=== PATIENT | male | born 1940 | race Caucasian/White ===

== ENCOUNTER 2017-04-21 12:58 | Inpatient (IN) | payer OTHER ==
[~2017-04-21] VITALS: Ht 177.8 cm; Wt 86.3 kg
[~2017-04-21 12:58] MED LIST: ALDACTONE25 MG PO; ASPIR 8181 MG PO; ASPIRIN PO; ATRINH INH; CARISOPRODOL350 PO; CENTRUM SILVER1 EAC2 PO; COR6 PO; COREG12.5 MG PO; COU5 PO; COUMADIN5 MG PO; DIG125 PO; GLU500 PO; HALCION PO; L20 PO; LASIX40 MG PO; LISINOPRIL10 MG PO; LISINOPRIL2.5 MG PO; LOT10 PO; LOVASTATIN20 M PO; LOVASTATIN20 MG PO; METFORMIN HCL1000 MG PO; MONTELUKAST SOD10 M1 PO; PENTOXIFYLLINE400 MG PO; POTASSIUM CHLORIDE; PRILOSEC OTC20 M1 PO; PRILOSEC20 PO; PROAIR HFA8.5 GM; SPIRIVA18 MC1 IH; SYMBICORT1 AE2 IH; TRE400 PO; [UNRECOGNIZED DRUG - OTHER] PO
--- NOTE | 2017-04-21 13:06 | NUR ---
PT BIB BY AMBULANCE TODAY. PT WAS TAKING HIS DAILY WALK AROUND THE MALL TODAY AND BEGAN FEELING LIGHT-HEADED AND DIZZY. DENIES SYNCOPAL EPISODE, DENIES CP. PT AWAKE AND ALERT, TALKATIVE UPON ARRIVAL, NO SIGNS OF DISTRESS NOTED.
--- NOTE | 2017-04-21 13:23 | NUR ---
DR. REYNA AT BEDSIDE FOR MSE.
[2017-04-21 13:52] LABS: BASOPHIL % 0.4 % (0-2); PLATELET COUNT 173 x10^3mcL (130-400)
[2017-04-21 13:55] LABS: RED CELL DISTRIBUTION WIDTH 15.8 % (11.5-14.5)
[2017-04-21 14:18] LABS: CALCIUM 9.3 mg/dL (8.5-10.1); CARBON DIOXIDE 28.4 mmol/L (21-32); CHLORIDE SERUM 102 mmol/L (98-107); CREATININE SERUM 1.5 mg/dL (0.7-1.3); GLUCOSE SERUM 100 mg/dL (74-106); POTASSIUM SERUM 4.7 mmol/L (3.5-5.1); SODIUM SERUM 139 mmol/L (136-145)
[2017-04-21 14:23] LABS: ALBUMIN 3.4 g/dL (3.4-5.0); ALKALINE PHOSPHATASE 110 U/L (46-116); ALT/SGPT 17 U/L (16-63); AST/SGOT 19 U/L (15-37); BILIRUBIN TOTAL 0.56 mg/dL (0.20-1.00); TOTAL PROTEIN, SERUM 7.7 g/dL (6.4-8.2)
[2017-04-21] MEDS ORDERED: ELIQUIS5 MG PO (15:43)
[2017-04-21] MEDS ORDERED: HALCION0.25 MG PO (15:44)
[2017-04-21] MEDS ORDERED: ENTRESTO1 TA2 PO (15:44)
[2017-04-21] MEDS ORDERED: FERROUS SULFAT325 M2 PO (15:44)
--- NOTE | 2017-04-21 16:02 | NUR ---
MEDICATION ADMINISTERED PER MD ORDER, PT VERBALIZED UNDERSTANDING OF MED PRIOR TO ADMIN.
--- NOTE | 2017-04-21 16:08 | NUR ---
REPORT CALLED TO [facility], RECEIVING RN ON TELE.
[2017-04-21 16:11] LABS: CHOLESTEROL/HDL RATIO 3.3; MAGNESIUM 1.2 mg/dL (1.8-2.4); PHOSPHOROUS 2.7 mg/dL (2.5-4.9)
[2017-04-21 16:18] LABS: FREE T4 1.07 ng/dL (0.76-1.46); FREE THYROXINE INDEX 2.5 ug/dL (1.4-4.5); T4(THYROXINE) 6.7 ug/dL (4.7-13.3)
--- NOTE | 2017-04-21 16:20 | NUR ---
REC'D PT FROM ER VIA [facility]. PT IS AAOX4. DENIES DIZZINESS OR GIRON. TELE #11 100% PACED. PACEMAKER NOTED TO LEFT CHEST. RESP EVEN AND UNLABORED. NO SOB NOTED. IV NOTED TO RH. INTACT AND PATENT. ORIENTED PT TO CALL LIGHT. BED IN LOWEST POSITION. WILL ENDORSE TO PRIMARY RN.
--- NOTE | 2017-04-21 16:30 | NUR ---
RECEIVED ,RESOURCE NURSE.AAO X4.DENIES ANY PAIN/DISCOMFORT.NO C/O DIZZINESS .ON PACED RHYTHM ON THE MONITOR.CALL LIGHT WITHIN REACH.INSTRUCTED TO CALL FOR ANY PAIN/DISCOMFORT.WILL CONTINUE TO MONITOR PT.
[2017-04-21 16:33] VITALS: BP 126/69
[2017-04-21 16:40] LABS: T3 TOTAL 0.82 ng/mL
[2017-04-21 17:07] VITALS: Ht 177.8 cm; Wt 86.3 kg
[2017-04-21 18:04] LABS: microscopic required? NO
--- NOTE | 2017-04-21 18:19 | NUR ---
NO SIGNIFICANT CHANGE NOTED.WILL ENDORSE TO NEXT SHIFT.
[2017-04-21 18:26] LABS: urine erythrocyte NEGATIVE (NEGATIVE)
[2017-04-21 18:37] LABS: AMPHETAMINE QUAL UR NONE DETECTED (NEG <=1000)
--- NOTE | 2017-04-21 19:43 | NUR ---
TOLD THE PT TO ASK HIS TO BRING HIS MEDICATION THE NEXT TIME SHE VISITS HIM IN THE HOSPITAL. PT VERBALIZED UNDERSTANDING. DR. ROBLES AT PATIENTS BEDSIDE. WILL CONTINUE TO MONITOR.
[2017-04-21 19:56] VITALS: BP 107/48
--- NOTE | 2017-04-21 20:00 | NUR ---
PT A/A/O X4. DENIES DIZZINESS AND HEADACHE. BREATH SOUNDS CLEAR. BREATHING EVEN AND UNLABORED ON ROOM AIR, SPO2 98%. DENIES CHEST PAIN AND PRESSURE. BOWEL SOUNDS ACTIVE. NO C/O N/V AND ABD PAIN. TRACE EDEMA NOTED ON RIGHT LOWER EXTTREMITY WITH MILD REDNESS. SCATTERED WOUNDS WITH SCAB NOTED ON BLE BURR BENCH HAND. IV INTACT ON THE LAC. MADE PT COMFORTABLE. PLACED CALL LIGHT WITH IN REACH. WILL CONTINUE TO MONITOR.
[2017-04-21 22:18] VITALS: BP 107/58
--- NOTE | 2017-04-22 00:48 | NUR ---
PT C/O PAIN ON THE NECK AND RADIATING TO THE RIGHT SHOULDER. PT STATED " THE PAIN THERE IS NOTHING NEW.". GAVE PT NORCO PO. PT TOLERATED IT WELL. WILL CONTINUE TO MONITOR.
[2017-04-22 05:14] VITALS: BP 95/53
--- NOTE | 2017-04-22 05:18 | NUR ---
PT C/O PAIN ON THE NECK. GAVE PT NORCO PO. PT TOLERATED IT WELL. WILL ENDORSE TO THE AM NURSE ACCORDINGLY.
[2017-04-22 06:12] LABS: CALCIUM 9.6 mg/dL (8.5-10.1); CARBON DIOXIDE 27.9 mmol/L (21-32); CHLORIDE SERUM 100 mmol/L (98-107); CREATININE SERUM 1.5 mg/dL (0.7-1.3); GLUCOSE SERUM 139 mg/dL (74-106); MAGNESIUM 2.3 mg/dL (1.8-2.4); POTASSIUM SERUM 4.2 mmol/L (3.5-5.1); SODIUM SERUM 139 mmol/L (136-145)
--- NOTE | 2017-04-22 08:05 | NUR ---
AWAKE, ALERT AND ORIENTED. NO ACUTE DISTRESS NOTED. MEDICATED FOR PAIN BY NOC SHIFT WITH FAIR RELIEF. VS WNL. IVF TO KVO AND SITE CLEAR. CALL LIGHT WITHIN REACH. WILL CONTINUE W/PLAN OF CARE.
[2017-04-22 08:07] LABS: BASOPHIL % 0.5 % (0-2); PLATELET COUNT 167 x10^3mcL (130-400)
[2017-04-22 08:09] LABS: RED CELL DISTRIBUTION WIDTH 16.2 % (11.5-14.5)
[2017-04-22 08:37] VITALS: BP 107/53
--- NOTE | 2017-04-22 12:08 | NUR ---
AM ROUNDS DONE BY DR. GRIFFITH AND MEDICAL TEAM, PLAN TO CONT. WITH CURRENT TX. PT AGREED WITH PLAN.
[2017-04-22 12:40] VITALS: BP 124/74
[2017-04-22 16:37] VITALS: BP 107/57
--- NOTE | 2017-04-22 18:50 | NUR ---
REMAINS IN NO DISTRESS, AWAKE AND ALERT. FAMILY AT BEDSIDE. NO C/O PAIN OR DISCOMFORT AT THIS TIME. NO CHANGES IN VS. IVF INFUSING TO KVO AND SITE CLEAR. CALL LIGHT WITHIN REACH. WILL BE ENDORSED TO INCOMING SHIFT.
--- NOTE | 2017-04-22 19:40 | NUR ---
RECEIVED PT AWAKE AND ALERT. AMBULATORY WITH SLOW AND STEADY GAIT. AOX4. VERBAL WITH CLEAR SPEECH. DENIES ANY DIZZINESS AT THIS TIME. NO S/S OF RESPIRATORY DISTRESS NOTED ON ROOM AIR, 98%. LUNGS DIMINISHED. ON TELE 11, 100% PACED, AFIB WITH PVCS. DENIES ANY CHEST PAIN. ABD SOFT AND ROUND. BOWEL SOUNDS ACTIVE. SKIN WARM AND DRY. IV TO RIGHT HAND PATENT AND INTACT. IV NS INFUSING WELL. NO S/S OF INFECTION NOTED. NOTED WITH TRACE EDEMA TO BLE. PULSES PALPABLE. DENIES ANY PAIN AT THIS TIME. NO S/S OF DISTRESS NOTED. CURRENTLY SITTING UP IN BED READING A BOOK. CALL LIGHT WITHIN REACH. WILL CONTINUE TO MONITOR.
[2017-04-22 20:45] VITALS: BP 100/59
--- NOTE | 2017-04-23 00:20 | NUR ---
PT RESTING IN BED WITH EYES CLOSED. BREATHING EQUAL AND UNLABORED. NO S/S OF RESPIRATORY DISTRESS NOTED ON ROOM AIR. RESTING COMFORTABLY WITH RELAXED FACIAL FEATURES. CALL LIGHT WITHIN REACH. WILL CONTINUE TO MONITOR.
[2017-04-23 05:34] VITALS: BP 110/54
[2017-04-23 06:09] LABS: BASOPHIL % 0.5 % (0-2); PLATELET COUNT 140 x10^3mcL (130-400)
--- NOTE | 2017-04-23 06:14 | NUR ---
PT SLEPT WELL THROUGHOUT THE NIGHT. EASILY AROUSED WITH VERBAL STIMULI. NO S/S OF RESPIRATORY DISTRESS NOTED ON ROOM AIR. BREATHING EQUAL AND UNLABORED. NO S/S OF DISTRESS NOTED. DENIES ANY PAIN. CALL LIGHT WITHIN REACH. WILL CONTINUE TO MONITOR.
[2017-04-23 06:20] LABS: CALCIUM 9.7 mg/dL (8.5-10.1); CARBON DIOXIDE 29.5 mmol/L (21-32); CHLORIDE SERUM 102 mmol/L (98-107); CREATININE SERUM 1.6 mg/dL (0.7-1.3); GLUCOSE SERUM 112 mg/dL (74-106); POTASSIUM SERUM 5.1 mmol/L (3.5-5.1); SODIUM SERUM 139 mmol/L (136-145)
[2017-04-23 06:27] LABS: RED CELL DISTRIBUTION WIDTH 16.3 % (11.5-14.5)
--- NOTE | 2017-04-23 07:17 | NUR ---
RECEIVED ASLEEP BUT AROUSABLE. NO DISTRESS NOTED. NO C/O PAIN OR DISCOMFORT. VS STABLE.VF INFUSING TO KVO AND SITE CLEAR. CALL LIGHT WITHIN REACH. WILL CONTINUE W/PLAN OF CARE.
[2017-04-23 08:28] VITALS: BP 116/51
--- NOTE | 2017-04-23 09:00 | NUR ---
AM ROUNDS DONE BY DR. NUNES AND MEDICAL TEAM, PLAN TO CONT. WITH CURRENT TX AND F/U WITH PT FOR POSSIBLE DC HOME THIS AFTERNOON. PT AGREED WITH PLAN.
[2017-04-23 11:59] VITALS: BP 107/62
[2017-04-23 15:05] VITALS: BP 107/62
--- NOTE | 2017-04-23 15:22 | NUR ---
PT DC'D HOME IN NO DISTRESS. AWAKE, ALERT AND ORIENTED. VS STABLE. NO C/O PAIN OR DISCOMFORT AT THE TIME OF DC. HL REMOVED AND SITE CLEAR. DC INSTRUCTIONS REVIEWED WITH PT AND SPOUSE, THEY BOTH VERBALIZED UNDERSTANDING. PERSONAL BELONGINGS TAKEN HOME.
== END 2017-04-23 15:23 | disposition home or self-care (01) | DRG 291 ==
LOC: ED 12:58 → DU 15:15
PROVIDERS: Emergency Medicine; Internal Medicine Cardiovascular Disease; Student in an Organized Health Care Education/Training Program; ADMIT Family Medicine
DX: I11.0 Hypertensive heart disease with heart failure (principal); N17.0 Acute kidney failure with tubular necrosis; J44.1 Chronic obstructive pulmonary disease with (acute) exacerbation; I50.43 Acute on chronic combined systolic (congestive) and diastolic (congestive) heart failure; E83.42 Hypomagnesemia; Z68.29 Body mass index [BMI] 29.0-29.9, adult; Z95.810 Presence of automatic (implantable) cardiac defibrillator; I25.2 Old myocardial infarction; I25.10 Atherosclerotic heart disease of native coronary artery without angina pectoris; I25.5 Ischemic cardiomyopathy; E11.65 Type 2 diabetes mellitus with hyperglycemia; I48.91 Unspecified atrial fibrillation; D64.9 Anemia, unspecified
CPT/HCPCS: 82962; 83880; 84439; 90658; 94150; 97110-GP; J1885; J1940; J3475; J7030; J7620; Q0092

== ENCOUNTER 2018-07-22 13:07 | Inpatient (IN) | payer OTHER ==
[~2018-07-22] VITALS: Ht 177.8 cm; Wt 90.0 kg
[~2018-07-22 13:07] MED LIST changes: +ELIQUIS5 MG PO; +ENTRESTO1 TA2 PO; +FERROUS SULFAT325 M2 PO; +HALCION0.25 MG PO; -PROAIR HFA8.5 GM; +PROAIR HFA8.5 GM INH
[2018-07-22 13:11] VITALS: Ht 177.8 cm; Wt 90.0 kg
[2018-07-22 13:55] LABS: BASOPHIL % 0.5 % (0-2); PLATELET COUNT 200 x10^3mcL (130-400)
[2018-07-22 14:00] LABS: CALCIUM 9.4 mg/dL (8.5-10.1); CARBON DIOXIDE 23.8 mmol/L (21-32); CHLORIDE SERUM 101 mmol/L (98-107); CREATININE SERUM 1.8 mg/dL (0.7-1.3); GLUCOSE SERUM 159 mg/dL (74-106); POTASSIUM SERUM 3.9 mmol/L (3.5-5.1); SODIUM SERUM 137 mmol/L (136-145)
[2018-07-22] MEDS ORDERED: SYMBICORT1 AE3 INH (14:02)
[2018-07-22 14:05] LABS: ALKALINE PHOSPHATASE 101 U/L (46-116); ALT/SGPT 20 U/L (16-63); AST/SGOT 16 U/L (15-37); BILIRUBIN TOTAL 0.8 mg/dL (0.20-1.00); TOTAL PROTEIN, SERUM 7.1 g/dL (6.4-8.2)
[2018-07-22 14:07] LABS: ALBUMIN 3.1 g/dL (3.4-5.0)
[2018-07-22 14:09] LABS: RED CELL DISTRIBUTION WIDTH 17.5 % (11.5-14.5)
[2018-07-22] MEDS ORDERED: LASIX40 MG PO (14:13)
[2018-07-22] MEDS ORDERED: LASIX20 MG PO (14:14)
[2018-07-22] MEDS ORDERED: COR6 PO (14:16)
[2018-07-22] MEDS ORDERED: TESSALON PERLE100 MG PO (14:17)
[2018-07-22] MEDS ORDERED: LOVASTATIN20 MG PO (14:18)
[2018-07-22] MEDS ORDERED: COZAAR25 M1 PO (14:19)
[2018-07-22] MEDS ORDERED: METFORMIN HCL1000 MG PO (14:20)
[2018-07-22] MEDS ORDERED: DUONEB INH (14:22)
[2018-07-22] MEDS ORDERED: HYDRALAZINE HCL25 MG PO (14:23)
[2018-07-22] MEDS ORDERED: MELOXICAM7.5 M1 PO (14:24)
[2018-07-22 16:31] VITALS: BP 118/73
[2018-07-22 17:32] VITALS: BP 118/73
[2018-07-22 20:54] VITALS: BP 117/66
[2018-07-23 05:58] VITALS: BP 110/62
[2018-07-23 07:17] LABS: CALCIUM 9.1 mg/dL (8.5-10.1); CARBON DIOXIDE 26.9 mmol/L (21-32); CHLORIDE SERUM 102 mmol/L (98-107); CREATININE SERUM 1.6 mg/dL (0.7-1.3); GLUCOSE SERUM 102 mg/dL (74-106); MAGNESIUM 1.5 mg/dL (1.8-2.4); POTASSIUM SERUM 3.8 mmol/L (3.5-5.1); SODIUM SERUM 139 mmol/L (136-145)
[2018-07-23 08:30] VITALS: BP 105/57
[2018-07-23 13:15] VITALS: BP 103/66
[2018-07-23 17:00] VITALS: BP 119/67
[2018-07-23 20:44] VITALS: BP 106/62
[2018-07-24 05:18] VITALS: BP 109/51
[2018-07-24 06:46] LABS: BASOPHIL % 0.3 % (0-2); PLATELET COUNT 189 x10^3mcL (130-400)
[2018-07-24 06:49] LABS: RED CELL DISTRIBUTION WIDTH 17.3 % (11.5-14.5)
[2018-07-24 07:09] LABS: CALCIUM 9.4 mg/dL (8.5-10.1); CARBON DIOXIDE 24.5 mmol/L (21-32); CHLORIDE SERUM 100 mmol/L (98-107); CREATININE SERUM 1.6 mg/dL (0.7-1.3); GLUCOSE SERUM 107 mg/dL (74-106); POTASSIUM SERUM 4.1 mmol/L (3.5-5.1); SODIUM SERUM 137 mmol/L (136-145)
[2018-07-24 09:26] VITALS: BP 114/70
[2018-07-24 12:21] VITALS: BP 107/66
== END 2018-07-24 16:16 | disposition home or self-care (01) | DRG 291 ==
LOC: ED 13:07 → DU 15:37
PROVIDERS: Emergency Medicine; ADMIT Internal Medicine Pulmonary Disease
DX: I13.0 Hypertensive heart and chronic kidney disease with heart failure and stage 1 through stage 4 chronic kidney disease, or unspecified chronic kidney disease (principal); J96.21 Acute and chronic respiratory failure with hypoxia; I50.23 Acute on chronic systolic (congestive) heart failure; J44.1 Chronic obstructive pulmonary disease with (acute) exacerbation; I25.5 Ischemic cardiomyopathy; I48.2 Chronic atrial fibrillation; I35.0 Nonrheumatic aortic (valve) stenosis; N18.9 Chronic kidney disease, unspecified; Z95.810 Presence of automatic (implantable) cardiac defibrillator; Z79.01 Long term (current) use of anticoagulants; Z87.891 Personal history of nicotine dependence; Z99.81 Dependence on supplemental oxygen
CPT/HCPCS: 82962; 83880; J1940; J3475; J7620; J7626; Q0092